=== PATIENT | male | born 1970 | race Caucasian/White ===

== ENCOUNTER 2023-12-29 15:58 | Outpatient (RCR) | payer SELFPAY ==
[2023-12-18 16:10] VITALS: BP 133/87
[2023-12-19 16:48] VITALS: BP 142/97
[2023-12-20 15:45] VITALS: BP 133/91
[2023-12-21 16:00] VITALS: BP 141/97
[2023-12-22 16:04] VITALS: BP 126/91
[2023-12-23 15:57] VITALS: BP 134/93
--- NOTE | 2023-12-23 16:22 | NUR ---
JASMINE SRINIVASAN, LOOKED AT WOUND. WISHES TO CONTINUE PACKING WOUND WE ARE, BUT CHANGE FREQUENCY TO EVERY OTHER DAY. SEE ORDERS. PT TO RETURN ON 12/25/23.
[2023-12-25 16:04] VITALS: BP 122/94
[2023-12-27 15:52] VITALS: BP 142/94
[~2023-12-29] VITALS: Ht 165.1 cm; Wt 72.7 kg
[~2023-12-29 15:58] MED LIST: BACTRIM DS TAB1 EACH PO; DESYREL50 MG PO
[2023-12-29 16:15] VITALS: BP 127/93
--- NOTE | 2023-12-29 17:24 | NUR ---
Documentation moved from [id number] to recurring account. DR SANTO APPROVED OF WOUND CONDITION, INFORMED PATINET THAT HE WILL NO LONGER NEED TO RETURN FOR DRESSING CHANGES. EDUCATED PATIENT TO KEEP AREA CLEAN AND PERFORM ROUTINE BANDAGE CHANGES.
== END 2023-12-29 17:00 | disposition home or self-care (01) ==
LOC: AMSURD 15:58
DX: L02.214 Cutaneous abscess of groin (principal)